=== PATIENT | female | born 1975 | race Two or more races ===

== ENCOUNTER 2018-12-08 08:52 | Day surgery (SDC) | payer OTHER ==
[~2018-12-08] VITALS: Ht 154.9 cm; Wt 70.3 kg
[2018-12-08] VITALS (12 sets, daily range): BP systolic 102–120; BP diastolic 68–78
[~2018-12-08 08:52] MED LIST: Bacitracin 50000 Units Vial ONE; Bacitracin Oint 15gm Tube TOPIC ONE; Bupivacaine 0.25% Inj 30ml INJ ONE; Dexamethasone 4mg/ml vial ONE; Lidocaine 1% Plain 30 ml INJ ONE; ceFAZolin sod 1 GM in NS 55 ML IVPB ONE
[2018-12-08] MEDS ORDERED: NKM (09:40)
[2018-12-08] MEDS ORDERED: Dexamethasone 4mg/ml vial ONE (09:40)
[2018-12-08 09:44] LABS: BASOPHILS % (AUTO) 1.5 % (0.0-2.0); EOSINOPHILS % (AUTO) 1.6 % (0.0-3.0); HEMATOCRIT 41.6 % (37.0-47.0); HEMOGLOBIN 14.5 G/DL (12.0-16.0); LYMPHOCYTES % (AUTO) 37.8 % (20.0-45.0); MEAN CORPUSCULAR VOLUME 87 FL (80-99); MONOCYTES % (AUTO) 5.8 % (1.0-10.0); NEUTROPHILS % (AUTO) 53.3 % (45.0-75.0); PLATELET COUNT 254 K/UL (150-450); RED BLOOD COUNT 4.78 M/UL (4.20-5.40); RED CELL DISTRIBUTION WIDTH 11.6 % (11.6-14.8); WHITE BLOOD COUNT 7.5 K/UL (4.8-10.8)
[2018-12-08 09:52] LABS: INR 0.9 (0.9-1.1)
[2018-12-08 10:34] LABS: ANION GAP 7 mmol/L (5-15); BLOOD UREA NITROGEN 17 mg/dL (7-18); CALCIUM 8.6 MG/DL (8.5-10.1); CARBON DIOXIDE 26 MMOL/L (21-32); CHLORIDE 105 MMOL/L (98-107); CREATININE 0.7 MG/DL (0.55-1.30); POTASSIUM 3.9 MMOL/L (3.5-5.1); SODIUM 138 MMOL/L (136-145)
--- NOTE | 2018-12-08 10:35 | Pre-Procedure Note/Attestation ---
Pre-Procedure Note/Attestation Complete Prior to Procedure Planned Procedure: right Procedure Narrative: correction of painful 5th right hammer toe with arthroplasty , MPJ release and possible K-wire fixation Indications for Procedure Pre-Operative Diagnosis: 5th right hammer toe with contracted MPJ Attestation I attest that I discussed the nature of the procedure; its benefits; risks and complications; and alternatives (and the risks and benefits of such alternatives ), prior to the procedure, with the patient (or the patient's legal service liaison representative). I attest that, if there was a reasonable possibility of needing a blood transfusion, the patient (or the patient's legal service liaison representative) was given the [place] [employer] [facility] standardized written summary, pursuant to the [place] Blood Safety Act ([place] Health and Safety Code # 1645, as amended). I attest that I re-evaluated the patient just prior to the surgery and that there has been no change in the patient's H&P, except as documented below: Moe Archibald DPM Dec 08, 2018 10:35
[2018-12-08] MEDS ORDERED: NS Irrig 1000ml ONE (11:00)
[2018-12-08] MEDS ORDERED: LR 1000ml ONE (11:00)
[2018-12-08] MEDS ORDERED: Sterile Water Irrig 1000ml IRRIG ONE (11:00)
--- NOTE | 2018-12-08 11:02 | Diagnostic Imaging Report ---
Indication: Foot pain. Preoperative Comparison: None Findings: 3 views of the right foot were obtained. No acute fractures, malalignment, erosions or periostitis are identified. Impression: No acute findings.
--- NOTE | 2018-12-08 11:39 | Brief Operative Note ---
Immediate Post Operative Note Operative Note Pre-op Diagnosis: 5th right hammer toe with contracted MPJ Procedure: 5th right arthroplasty PIPJ and release OF MPJ Post-op Diagnosis: same as pre op Post-op Diagnosis: same as pre-op Surgeon: moe archibald Anesthesiologist: mark Anesthesia: MAC Specimen: yes Complications: none Condition: stable Fluids: 0 Estimated Blood Loss: none Drains: none Tourniquet time: 19 Implant(s) used?: No Moe Archibald DPM Dec 08, 2018 11:39
[2018-12-08] MEDS ORDERED: Lidocaine 1% MPF 10mg/ml 5ml ONE (11:44)
[2018-12-08] MEDS ORDERED: fentaNYL 100 mcg/2 mL ONE (11:44)
[2018-12-08] MEDS ORDERED: Midazolam 2mg/2ml Inj ONE (11:44)
[2018-12-08] MEDS ORDERED: Propofol 200mg/20ml IV ONE (11:44)
[2018-12-08] MEDS ORDERED: fentaNYL 100 mcg/2 mL IV PRN (12:00)
--- NOTE | 2018-12-08 12:01 | Anethesia Preoperative Eval ---
Anesthesia Pre-op PMH/ROS General Date of Evaluation: Dec 08, 2018 Time of Evaluation: 10:55 Anesthesiologist: mariana ASA Score: ASA 2 Mallampati Score Class I : Soft palate, uvula, fauces, pillars visible Class II: Soft palate, uvula, fauces visible Class III: Soft palate, base of uvula visible Class IV: Only hard plate visible Mallampati Classification: Class II Surgeon: Cristela Diagnosis: hammer toe Surgical Procedure: hammer toe correction Anesthesia History: PONV Family History: no anesthesia problems Allergies: Coded Allergies: No Known Allergies (Unverified , 12/07/18) Medications: see eMAR Patient NPO?: Yes NPO Date: Dec 08, 2018 NPO Time: 00:01 Past Medical History Cardiovascular: Reports: HTN; Denies: CAD, PA, valve dz, arrhythmia, other Pulmonary: Denies: asthma, COPD, STAR, other Gastrointestinal/Genitourinary: Denies: GERD, CRI, ESRD, other Neurologic/Psychiatric: Denies: dementia, CVA, depression/anxiety, TIA, other Endocrine: Reports: DM; Denies: hypothyroidism, steroids, other HEENT: Denies: cataract (L), cataract (R), glaucoma, TORRES MARTINEZ (L), TORRES MARTINEZ (R), other Hematology/Immune: Denies: anemia, DVT, bleeding disorder, other Musculoskeletal/Integumentary: Denies: OA, RA, DJD, DDD, edema, other Other: obesity PSxH Narrative: breast reduction Anesthesia Pre-op Phys. Exam Physician Exam Last Vital Signs Date Time Temp Pulse Resp B/P (MAP) Pulse Ox O2 Delivery O2 Flow Rate FiO2 12/08/18 11:55 58 13 114/78 98 Room Air 12/08/18 11:31 98.1 Constitutional: NAD Neurologic: CN 2-12 intact Cardiovascular: RRR Respiratory: CTA Gastrointestinal: S/NT/ND Airway Exam Mallampati Classification 2 Mallampati Score: Class II MO: full Neck: normal TMD: 2fb ROM: full Dentures: no upper, no lower Anesthesia Pre-op A/P Labs Hematology Test 12/08/18 09:20 White Blood Count 7.5 K/UL (4.8-10.8) Red Blood Count 4.78 M/UL (4.20-5.40) Hemoglobin 14.5 G/DL (12.0-16.0) Hematocrit 41.6 % (37.0-47.0) Mean Corpuscular Volume 87 FL (80-99) Mean Corpuscular Hemoglobin 30.4 PG (27.0-31.0) Mean Corpuscular Hemoglobin Concent 34.9 G/DL (32.0-36.0) Red Cell Distribution Width 11.6 % (11.6-14.8) Platelet Count 254 K/UL (150-450) Mean Platelet Volume 7.7 FL (6.5-10.1) Neutrophils (%) (Auto) 53.3 % (45.0-75.0) Lymphocytes (%) (Auto) 37.8 % (20.0-45.0) Monocytes (%) (Auto) 5.8 % (1.0-10.0) Eosinophils (%) (Auto) 1.6 % (0.0-3.0) Basophils (%) (Auto) 1.5 % (0.0-2.0) Coagulation Test 12/08/18 09:20 Prothrombin Time 10.0 SEC (9.30-11.50) Prothromb Time International Ratio 0.9 (0.9-1.1) Activated Partial Thromboplast Time 25 SEC (23-33) Chemistry Test 12/08/18 09:20 12/08/18 10:10 Human Chorionic Gonadotropin, Qual Negative (NEGATIVE) Sodium Level 138 MMOL/L (136-145) Potassium Level 3.9 MMOL/L (3.5-5.1) Chloride Level 105 MMOL/L (98-107) Carbon Dioxide Level 26 MMOL/L (21-32) Anion Gap 7 mmol/L (5-15) Blood Urea Nitrogen 17 mg/dL (7-18) Creatinine 0.7 MG/DL (0.55-1.30) Estimat Glomerular Filtration Rate > 60 mL/min (>60) Glucose Level 105 MG/DL (74-106) Calcium Level 8.6 MG/DL (8.5-10.1) Serum Test Test 12/08/18 09:20 Human Chorionic Gonadotropin, Qual Negative (NEGATIVE) Studies Pre-op Studies: EKG - sr Risk Assessment & Plan Plan: mac Status Change Before Surgery: No Pre-Antibiotics Drug: ancef Given Within 1 Hr of Incision: Yes Time Given: 11:00 Radha Vasquez CRNA Dec 08, 2018 12:01
--- NOTE | 2018-12-08 12:43 | Immediate Post-Op Evaluation ---
Immediate Post-Op Evalulation Immediate Post-Op Evalulation Procedure: hammer toe correction Date of Evaluation: Dec 08, 2018 Time of Evaluation: 11:42 IV Fluids: 500 Blood Pressure Systolic: 102 Blood Pressure Diastolic: 68 Pulse Rate: 69 Respiratory Rate: 14 O2 Sat by Pulse Oximetry: 99 Temperature (Fahrenheit): 98.1 Nausea: No Vomiting: No Complications none Patient Status: awake, reacts, patent Hydration Status: adequate Drug: ancef Given Within 1 Hr of Incision: Yes Radha Vasquez CRNA Dec 08, 2018 12:43
--- NOTE | 2018-12-08 13:28 | Diagnostic Imaging Report ---
Indication: Postop Comparison: None Findings: 3 views of the right foot were obtained. Head of the fifth proximal phalange of the resected. The foot is bandaged. IMPRESSION: Postoperative confirmation films
--- NOTE | 2018-12-08 14:11 | 48 Hour Post Anesthesia Eval ---
Post Anesthesia Evaluation Procedure: hammer toe correction Date of Evaluation: Dec 08, 2018 Time of Evaluation: 14:10 Blood Pressure Systolic: 108 0: 70 Pulse Rate: 51 Respiratory Rate: 14 O2 Sat by Pulse Oximetry: 98 Airway: patent Nausea: No Vomiting: No Hydration Status: adequate Cardiopulmonary Status: stable Mental Status/LOC: patient returned to baseline Follow-up Care/Observations: na Post-Anesthesia Complications: none Follow-up care needed: N/A Radha Vasquez CRNA Dec 08, 2018 14:10
--- NOTE | 2018-12-08 20:00 | Pre-op HX & Phy Repo 2 SIG ---
DATE OF ADMISSION: 12/08/2018 DATE OF OPERATION: 12/08/2018 HISTORY OF PRESENT ILLNESS: This is a 43-year-old female with a painful right fifth toe for the past year and a half. The patient has stated that the pain has been getting worse progressively over the years. The pain is mostly on the PIPJ and the MPJ of the fifth right secondary to hammertoe formation. The patient has tried numerous conservative measures including padding, orthotics, offloading therapy, but continues to experience pain daily. She reports no recent illness. No recurrent nausea, vomiting, chills, or shortness of breath. The patient is scheduled to have surgery today at [facility]. PAST MEDICAL HISTORY: No pertinent findings. SOCIAL HISTORY: Denies alcohol or drug use. MEDICATION: None. ALLERGIES: No known allergies. FAMILY HISTORY: No pertinent findings. PHYSICAL EXAMINATION: VITAL SIGNS: Temperature 98.2 degree, pulse is 72, respiration of 14, blood pressure is 130/80, and O2 saturation is 99.9% on room temperature. DERMATOLOGICAL: Hyperkeratotic lesion at the PIPJ joint of the fifth right. No open lesion. Contraction of the metatarsophalangeal joint and contraction of the PIPJ joint is noticed on the right fifth. VASCULAR: Dorsalis pedis and posterior artery are palpable. No edema. MUSCULOSKELETAL: Full muscle strength. ASSESSMENT AND PLAN: This is an 43-year-old female with right foot pain. The patient has tried numerous conservative measures, however, she is experiencing daily pain. We recommended surgery as an extensive management. The risks, benefits, and alternatives were discussed with the patient in detail who understands and wants to proceed with surgical intervention. All the patient's questions have been addressed and answered. The patient is scheduled to have surgery today on 12/08/2018 at [facility]. Moe Archibald D.P.M. DR: YUDITH JOB#: [id number] CC:
--- NOTE | 2018-12-12 14:30 | Operative Note - Dictated ---
DATE OF OPERATION: 12/08/2018 FACILITY: [facility]. SURGEON: Moe Archibald D.P.M. ANESTHESIOLOGIST: Radha Vasquez CRNA. PREOPERATIVE DIAGNOSIS: Hammertoe with contraction at the MPJ, fifth right. POSTOPERATIVE DIAGNOSES: Contraction at the PIPJ and contraction of MPJ, fifth right. OPERATION PERFORMED: Correction of hammertoe with arthroplasty PIPJ joint and release of MPJ joint, fifth. HEMOSTASIS: Pneumatic ankle tourniquet 250 mmHg. ESTIMATED BLOOD LOSS: Minimal, less than 2 mL. MATERIALS USED: 3-0 Vicryl, 4-0 nylon. COMPLICATIONS: None. INJECTABLE: A 10 mL of 0.25% Marcaine, 1% lidocaine ratio is 1:1 was injected in the right foot in terms of العلي block on the fifth metatarsophalangeal joint. Postoperatively, 2 mL of dexamethasone with 4 mL of 0.5% Marcaine was given in the postoperative area for pain management and decrease inflammation. PATHOLOGY: Bone resected from the fifth metatarsal was sent to pathology for study. DRESSING: Incision was covered with Betadine ointment, Xeroform, 4 x 4, Kerlix, and Coban. DESCRIPTION OF PROCEDURE IN DETAIL: The patient was brought into operating room and placed on operating table in supine position. A time-out was performed to verify the patient's name, procedure, site of surgery, and consent was done. Monitored anesthesia care was administered where a pneumatic ankle tourniquet was then placed about the patient's right ankle. After 1 g of Ancef was given to the patient, approximately 10 mL of 1:1 0.25% Marcaine and 1% lidocaine was then administered in in terms of العلي block fashion at the fifth metatarsophalangeal joint. The right lower extremity was then scrubbed, prepared, and draped in the usual aseptic manner. An Esmarch bandage was then utilized to exsanguinate the right lower extremity and tourniquet was inflated to 250 mmHg. Attention was directed to the right foot on the fifth toe where a contraction was noticed and a corn was noticed at the PIPJ. A double elliptical incision was done overlying the PIPJ joint extending down to the metatarsophalangeal joint. The incision was deepened. A wedge of skin was excised incorporating the corn. At this time, a horizontal incision was done through the capsule and through the extensor tendon to gain access to the head of the proximal phalanx. The head of the proximal phalanx was noticed to be extensively hypertrophic and enlarged. After the medial, lateral, plantar attachment was excised, approximately 3 mL of the head was osteotomized and passed from the field. At this time, it was noticed there was continuing contraction at the PIPJ joint going through the original incision. Access was gained to the flexor tendon. The flexor tendon was released. At this time, it was noticed there was further contraction at the MPJ joint through the original incision. Access was gained through the metatarsophalangeal joint and a dorsal capsulotomy was performed. At this time, it was noted that the toe was in the rectus position without any extensive bone protrusion. At this time, normal saline was utilized to lavage the area. The tendon of the extensor were reapproximated and subsequently the skin was closed using 4-0 nylon. The incision was dressed using 4 x 4, Betadine ointment, Ronda Abreu. Before the incision was closed, 2 mL of dexamethasone with 6 mL of Marcaine was injected in the area. Upon closure of the incision, the tourniquet was deflated and immediate hyperemia was noted to digits 1 through 5. The patient was transferred from the operating room to recovery room with all vital signs stable and will be transferred to postop upon clearance from anesthesia. The patient tolerated the procedure well. There were no complications of surgery. Moe Archibald D.P.M. DR: LIZETT JOB#: [id number] CC:
== END 2018-12-08 13:15 | disposition home or self-care (01) ==
LOC: SUR 08:52
DX: M20.41 Other hammer toe(s) (acquired), right foot (principal); E11.9 Type 2 diabetes mellitus without complications; I10 Essential (primary) hypertension; E66.9 Obesity, unspecified; Z68.29 Body mass index [BMI] 29.0-29.9, adult
CPT/HCPCS: 28285; 36415; 73630; 80048; 82962; 84703; 85025; 85610; 85730; 93005; J0690; J1100; J2001; J2250; J2405; J2704; J3010; J3490; 94003; 94150